=== PATIENT | female | born 1965 ===

== ENCOUNTER 2018-10-29 20:51 | Emergency (ER) | payer SELFPAY ==
[~2018-10-29] VITALS: Ht 170.2 cm; Wt 90.7 kg
[2018-10-29] MEDS ORDERED: Colace100 MG PO (22:47)
[2018-10-29] MEDS ORDERED: KETO10 PO (22:47)
== END 2018-10-29 23:13 | disposition home or self-care (01) ==
LOC: ER 20:51
DX: S30.0XXA Contusion of lower back and pelvis, initial encounter (principal); W18.30XA Fall on same level, unspecified, initial encounter
CPT/HCPCS: 72220; 96372; 99283-25; J1885

== ENCOUNTER 2020-11-15 23:13 | Inpatient (IN) | payer SELFPAY ==
[~2020-11-15] VITALS: Ht 170.2 cm; Wt 90.1 kg
[~2020-11-15 23:13] MED LIST: Colace100 MG PO; KETO10 PO
[2020-11-15 23:37] LABS: BASOPHILS ABSOLUTE AUTO 0.03 K/mm3 (0.00-0.23); BASOPHILS PERCENT AUTO 0 % (0-2); EOSINOPHILS PERCENT AUTO 0 % (0-6); Hematocrit 46.5 % (33.0-51.0); Mean Corpuscular HGB 31.7 pg (26.0-34.0); Mean Corpuscular HGB Conc 34.4 g/dL (31.5-36.5); Mean Corpuscular Volume 92 fL (80-100); Platelet Count 180 K/mm3 (150-400); RDW Coefficient Variation 12.6 % (11.7-14.2); Red Blood Cell Count 5.04 M/mm3 (3.80-5.20); White Blood Cell Count 7.31 K/mm3 (4.00-11.30)
[2020-11-15 23:38] LABS: IMMATURE GRAN ABSOLUTE AUTO 0.04 K/mm3 (0.00-0.10); IMMATURE GRAN PERCENT AUTO 1 % (0-1); LYMPHOCYTES ABSOLUTE AUTO 0.86 K/mm3 (0.84-5.20); LYMPHOCYTES PERCENT AUTO 12 % (21-46); MONOCYTES PERCENT AUTO 4 % (4-13); NEUTROPHILS ABSOLUTE AUTO 6.08 K/mm3 (1.96-9.15); NEUTROPHILS PERCENT AUTO 83 % (41-73)
[2020-11-15 23:59] LABS: Alanine Aminotransfer (ALT/SGP 54 U/L (12-78); Albumin, Blood 2.6 g/dL (3.4-5.0); Albumin/Globulin Ratio 0.6 (0.8-1.8); Alk Phos 62 U/L (50-136); Anion Gap 8 mmol/L (6-16); Aspartate Aminotrans (AST/SGOT 68 U/L (12-37); Bilirubin, Total 0.4 mg/dL (0.1-1.0); Blood Urea Nitrogen 11 mg/dL (8-24); Bun/Creatinine Ratio 14.8 (12.0-20.0); CO2, Blood 25 mmol/L (21-32); Calcium, Blood 7.4 mg/dL (8.5-10.1); Chloride, Blood 99 mmol/L (98-108); Creatinine, Blood 0.74 mg/dL (0.40-1.00); Ferritin, Serum 1721 ng/mL (8-252); Glomerular Filtration Rate >60 (60-); Glucose, Blood 167 mg/dL (70-99); Lactate Dehydrogenase (Ld),Bld 977 U/L (100-240); Potassium, Blood 3.7 mmol/L (3.5-5.5); Sodium, Blood 132 mmol/L (136-145); Total Protein, Blood 6.6 g/dL (6.4-8.2)
[2020-11-16 00:29] LABS: SARS-Cov-2 (COVID-19) PCR, MMC POSITIVE (NEGATIVE)
[2020-11-16 11:21] LABS: Hematocrit 48.5 % (33.0-51.0); Hemoglobin 16.2 g/dL (11.5-16.0); Mean Corpuscular HGB 31.3 pg (26.0-34.0); Mean Corpuscular HGB Conc 33.4 g/dL (31.5-36.5); Mean Corpuscular Volume 94 fL (80-100); Mean Platelet Volume 10.1 fL (9.1-12.4); Platelet Count 183 K/mm3 (150-400); RDW Coefficient Variation 12.5 % (11.7-14.2); RDW Standard Deviation 43.4 fL (35.1-46.3); Red Blood Cell Count 5.17 M/mm3 (3.80-5.20); White Blood Cell Count 6.51 K/mm3 (4.00-11.30)
[2020-11-16 11:39] LABS: BAND PERCENT MAN 2 % (0-8); BASOPHILS PERCENT MAN 0 % (0-2); EOSINOPHILS PERCENT MAN 0 % (0-6); LYMPHOCYTES ABSOLUTE MAN 0.71 K/mm3 (0.84-5.20); LYMPHOCYTES PERCENT MAN 11 % (21-46); MONOCYTES ABSOLUTE MAN 0.06 K/mm3 (0.16-1.47); MONOCYTES PERCENT MAN 1 % (4-13); NEUTROPHILS ABSOLUTE MAN 5.72 K/mm3 (1.96-9.15); SEG NEUTROPHILS PERCENT MAN 86 % (41-73); TOTAL CELLS COUNTED 100
[2020-11-16 11:41] LABS: Alanine Aminotransfer (ALT/SGP 51 U/L (12-78); Albumin, Blood 2.6 g/dL (3.4-5.0); Albumin/Globulin Ratio 0.6 (0.8-1.8); Alk Phos 64 U/L (50-136); Anion Gap 10 mmol/L (6-16); Aspartate Aminotrans (AST/SGOT 65 U/L (12-37); Bilirubin, Total 0.4 mg/dL (0.1-1.0); Blood Urea Nitrogen 13 mg/dL (8-24); Bun/Creatinine Ratio 21.2 (12.0-20.0); CO2, Blood 24 mmol/L (21-32); Calcium, Blood 8.2 mg/dL (8.5-10.1); Chloride, Blood 101 mmol/L (98-108); Creatinine, Blood 0.61 mg/dL (0.40-1.00); Globulin, Blood 4.4 g/dL (2.2-4.0); Glomerular Filtration Rate >60 (60-); Glucose, Blood 197 mg/dL (70-99); Sodium, Blood 135 mmol/L (136-145)
[2020-11-16] MEDS ORDERED: B12-FOLIC ACID1 EACH (16:49)
--- NOTE | 2020-11-16 18:37 | NUR ---
RECEIVED PT FROM ED ON 10L VIA OX. PT WAS DESATTING TO 82 AND WAS INCREASED TO 13L, SAT 88 AND ABOVE. PT REMAINS ALERT AND ORIENTED X4 MAKING NO C/O PAIN OR SOB. STAFF WILL CONTINUE TO MONITOR.
--- NOTE | 2020-11-17 03:43 | NUR ---
BUSINESS OFFICE TECHNICIAN SUMMARY HAS BEEN RESTING ON BED WITH INTERMITTENT EPISODES OF WAKEFULNESS. LUNG SOUNDS DIMINISHED AND IS ON O2 AT 13L/MIN ON NON REBREATHER/OXYMIZER DEPENDING ON WHAT FEELS MORE COMFORTABLE WITH HER SHE IS A MOUTH BREATHER WHEN SHE IS SLEEPING. MED TELE. UP TO BATHROOM WITH ASSIST NEEDED SHE IS SOB WITH EXERTION. CALL LIGHT IN REACH. ISOLATION PRECAUTIONS MAINTAINED
[2020-11-17 06:33] LABS: Alanine Aminotransfer (ALT/SGP 41 U/L (12-78); Albumin, Blood 2.4 g/dL (3.4-5.0); Albumin/Globulin Ratio 0.6 (0.8-1.8); Alk Phos 68 U/L (50-136); Anion Gap 8 mmol/L (6-16); Aspartate Aminotrans (AST/SGOT 46 U/L (12-37); Bilirubin, Total 0.3 mg/dL (0.1-1.0); Blood Urea Nitrogen 17 mg/dL (8-24); Bun/Creatinine Ratio 26.4 (12.0-20.0); CO2, Blood 25 mmol/L (21-32); Calcium, Blood 7.7 mg/dL (8.5-10.1); Chloride, Blood 100 mmol/L (98-108); Creatinine, Blood 0.64 mg/dL (0.40-1.00); Globulin, Blood 4.2 g/dL (2.2-4.0); Glomerular Filtration Rate >60 (60-); Glucose, Blood 264 mg/dL (70-99); Potassium, Blood 3.7 mmol/L (3.5-5.5); Sodium, Blood 133 mmol/L (136-145); Total Protein, Blood 6.6 g/dL (6.4-8.2)
--- NOTE | 2020-11-17 17:35 | NUR ---
SUMMARY- PT UP IN CHAIR MOST OF THE DAY. SWITCHES FROM OXYMIZER 13L TO NRM FEELS MORE COMFORTABLE, SATTING 93%, DESATS WITH ACTIVITY TO 85%. FEELS GENERALLY EXHAUSTED BUT ONLY MIN SOB WITH EXERTION. GEN BODY ACHES. OCC EXP WHEEZE. TOLERATING FOOD FLUIDS. ABLE TO AMBULATE TO THE BATHROOM SBA RICH ACT WITH MIN SOB.
--- NOTE | 2020-11-18 06:07 | NUR ---
SHIFT SUMMARY PATIENT ALERT AND ORIENTED. MEDICATED PER EMAR FOR HEADACHE. NO ACUTE ISSUES NOTED. CALL LIGHT WITHIN REACH. REPORT GIVEN TO ONCOMING RN.
--- NOTE | 2020-11-18 17:53 | NUR ---
PT HAS BEEN UP BACK AND FORTH BETWEEN BED AND CHAIR T/O THE SHIFT, UP TO BSC/BR NEEDED. C/O OF SOB WITH ACTIVITY. PT IS ON 15LNRB. SATS MAINTAINED IN 90'S WHILE AT REST, DESATS QUICKLY WITH ANY ACTIVITY. SHE HAS REPORTED SOB, BACK PAIN, COUGH AND BODY ACHES T/O THE SHIFT. NASAL CANNULA IS BEING ADDED FOR ADDITIONAL OXGYEN SUPPORT.
[2020-11-19 05:51] LABS: Base Excess Venous 3.3 mmol/L; PCO2 Venous 30.8 mmHg (38-42); PO2 Venous 113 mmHg (38-42); pH Blood Venous 7.53 (7.34-7.37)
[2020-11-19 06:12] LABS: BASOPHILS ABSOLUTE AUTO 0.03 K/mm3 (0.00-0.23); BASOPHILS PERCENT AUTO 0 % (0-2); EOSINOPHILS PERCENT AUTO 0 % (0-6); Hematocrit 47.1 % (33.0-51.0); Hemoglobin 15.9 g/dL (11.5-16.0); IMMATURE GRAN ABSOLUTE AUTO 0.07 K/mm3 (0.00-0.10); IMMATURE GRAN PERCENT AUTO 1 % (0-1); LYMPHOCYTES ABSOLUTE AUTO 0.55 K/mm3 (0.84-5.20); LYMPHOCYTES PERCENT AUTO 7 % (21-46); MONOCYTES ABSOLUTE AUTO 0.34 K/mm3 (0.16-1.47); MONOCYTES PERCENT AUTO 4 % (4-13); Mean Corpuscular HGB 31.1 pg (26.0-34.0); Mean Corpuscular HGB Conc 33.8 g/dL (31.5-36.5); Mean Corpuscular Volume 92 fL (80-100); NEUTROPHILS ABSOLUTE AUTO 7.26 K/mm3 (1.96-9.15); NEUTROPHILS PERCENT AUTO 88 % (41-73); Platelet Count 293 K/mm3 (150-400); RDW Coefficient Variation 12.4 % (11.7-14.2); RDW Standard Deviation 42.4 fL (35.1-46.3); Red Blood Cell Count 5.11 M/mm3 (3.80-5.20); White Blood Cell Count 8.25 K/mm3 (4.00-11.30)
--- NOTE | 2020-11-19 06:24 | NUR ---
PHYSICIAN COMMUNICATION CONTACTED PERSONNEL ASSOCIATE PHYSICIAN, DR WADE TO NOTIFY HIM THAT THE PATIENT HAD A CRITICAL HIGH pH FROM THEIR VBG AT 7.53. NO ORDERS GIVEN.
[2020-11-19 06:30] LABS: Alanine Aminotransfer (ALT/SGP 36 U/L (12-78); Albumin, Blood 2.3 g/dL (3.4-5.0); Albumin/Globulin Ratio 0.6 (0.8-1.8); Alk Phos 81 U/L (50-136); Anion Gap 8 mmol/L (6-16); Aspartate Aminotrans (AST/SGOT 41 U/L (12-37); Bilirubin, Total 0.4 mg/dL (0.1-1.0); Blood Urea Nitrogen 19 mg/dL (8-24); Bun/Creatinine Ratio 30.2 (12.0-20.0); CO2, Blood 26 mmol/L (21-32); Calcium, Blood 7.8 mg/dL (8.5-10.1); Chloride, Blood 103 mmol/L (98-108); Creatinine, Blood 0.63 mg/dL (0.40-1.00); Globulin, Blood 4.1 g/dL (2.2-4.0); Glomerular Filtration Rate >60 (60-); Glucose, Blood 227 mg/dL (70-99); Potassium, Blood 3.9 mmol/L (3.5-5.5); Sodium, Blood 137 mmol/L (136-145); Total Protein, Blood 6.4 g/dL (6.4-8.2)
--- NOTE | 2020-11-19 06:48 | NUR ---
SHIFT SUMMARY PATIENT ALERT AND ORIENTED. PT WAS ANXIOUS OVERNIGHT. O2 INCREASED TO 15 LITERS VIA NRB PLUS 12 LITERS VIA HIGH FLOW NASAL CANULA. CALL LIGHT WITHIN REACH. REPORT GIVEN TO ONCOMING RN.
--- NOTE | 2020-11-19 16:24 | NUR ---
SHIFT SUMMARY PATIENT DENIES PAIN AND NAUSEA. PATIENT GETS VERY SHORT OF BREATH WITH ACTIVITY. PATIENT IS ON 15L NRB AND 12L HIGH FLOW N/C. PATIENT WALKED TO BATHROOM THIS AM AND DESATURATED TO 70%. DR. MARROQUIN NOTIFIED. BEDSIDE COMMODE USED FOR REST OF SHIFT WITH SBA. WHEN PATIENT IS IN BED ON HER SIDE, SATS STAY ABOVE 93%. PATIENT IS VERY ANXIOUS ABOUT HER HEALTH AND OXYGEN LEVELS. PATIENT STATES SHE FEELS VERY WEAK AND TIRED. PATIENT SLEPT MOST OF SHIFT AND REFUSED ALL MEALS. PATIENT DID DRINK TWO ENSURES TODAY.
--- NOTE | 2020-11-20 05:15 | NUR ---
EQUIPMENT TECH SUMMARY PT A/O X4, SLEPT WELL TONIGHT. AMBULATED WITH SBA TO BSC. CONTINUES TO BE ON 15L NRB W 13L HIGH FLOW SATTING IN THE LOW 90'S. PT DESATS DOWN TO THE HIGH 70'S EASILY WITH ACITIVY. NO ACUTE CHANGES, DENIES PAIN AND NAUSEA. CALL LIGHT WITHIN REACH, WILL CONTINUE TO MONITOR.
--- NOTE | 2020-11-20 11:31 | NUR ---
DISCHARGE PATIENT TRANSPORTED VIA WHEELCHAIR TO [facility], THEN BEING TRANSPORTED HOME. PATIENT IS BEING DISCHARGED HOME WITH HOSPICE. HARD COPIES OF MEDICATIONS SENT WITH PATIENT. DISCHARGE PACKET SENT WITH PATIENT. PATIENT BELONGINGS SENT WITH PATIENT. POLST GIVEN TO SUPERVISOR LEAF SPRING REPAIR. HOSPICE NURSE TO MEET PATIENT AT HIS HOME. IV REMOVED WITHOUT DIFFICULTY.
--- NOTE | 2020-11-20 17:30 | NUR ---
SHIFT SUMMARY PATIENT MEDICATED X1 FOR PAIN. DENIES NAUSEA AND SHORTNESS OF BREATH AT REST. PATIENT EXPERIENCING SOME SOB WITH ACTIVITY. PATIENT ABLE TO TOLERATE MORE ACTIVITY TODAY. PATIENT DID NOT DESAT FREQUENTLY AND RECOVERED QUICKLY WHEN DESAT. PATIENT ON 14L WITH A NRB AND 6L N/C. MAINTAINING SATS ABOVE 90%. PATIENT HAD MORE OF AN APPETITE TODAY. PATIENT IS STILL VERY ANXIOUS ABOUT HEALTH AND OXYGEN NEEDS. PATIENT IS A SBA TO THE COMMODE. PATIENT COULD NOT TOLERATE PRONE POSITION.
--- NOTE | 2020-11-21 05:12 | NUR ---
INSULATION TECHNICIAN SUMMARY PT A/O X4, AMBULATES WITH SBA TO BSC. CONTINUES TO BE ON 14 NRB WITH 6L VIA HIGH FLOW SATTING IN THE LOW TO MID 90'S. VSS. DENIED PAIN. MEDICATED FOR ANXIETY AT BEGINNING OF SHIFT. NO ACUTE CHANGES, CALL LIGHT WITHIN REACH, WILL CONTINUE TO MONITOR.
--- NOTE | 2020-11-21 18:34 | NUR ---
SHIFT SUMMARY NO ACUTE CHANGES. PT REMAINS ON AIRVO 45 L/MIN @ 90% FiO2 AND 15 L/MIN NRB. SATING IN THE 90'S. PT BECOMES ANXIOUS AND IRRITABLE @ TIMES. STATES "I CANNOT DO THIS FOR 4 MORE DAYS". PT DENIES ANY OTHER DISTRESS. FREQUENT SMALL VOIDS. PT STATES THIS IS NORMAL FOR HER. ORAL INTAKE SLIGHTLY BETTER, DRINKING HER NUTRITION SUPPLEMENTAL DRINKS. PT CALLS APPROPRIATELY.
--- NOTE | 2020-11-21 19:30 | NUR ---
ASSUMED CARE RECEIVED REPORT FROM LILLIE WEAVER. PT RESTING, IN NAD. NO ACUTE NEEDS ASSESSED AT THIS TIME. CALL LIGHT, POSSESSIONS IN REACH. BED IN LOW AND LOCKED POSITION. WCTM.
--- NOTE | 2020-11-22 04:23 | NUR ---
SHIFT SUMMARY PT RESTING, IN NAD. NO ACUTE CONCERNS TO REPORT OVERNIGHT. VS REVIEWED,WNL; O2 SATS STABLE ON AIRVO/NRB. COOPERATIVE WITH CARES. CALLS APPROPRIATELY TO MAKE NEEDS KNOWN. NO ACUTE NEEDS ASSESSED AT THIS TIME. CALL LIGHT, POSSESSIONS IN REACH, BED IN LOW AND LOCKED POSITION. WILL REPORT OFF TO ONCOMING RN.
--- NOTE | 2020-11-22 16:33 | NUR ---
PT CBG OF 409, T/C TO DR YORK, ORDERS TO CHANGE LOW SLIDING SCALE TO HIGH SLIDING SCALE STARTING NOW.
--- NOTE | 2020-11-22 19:50 | NUR ---
ASSUMED CARE RECEIVED REPORT FROM LILLIE FERRER. PT RESTING, IN NAD. CBG 318. NO ACUTE DISTRESS NOTED. CALL LIGHT, POSSESSIONS IN REACH, BED IN LOW AND LOCKED POSITION
--- NOTE | 2020-11-23 06:46 | NUR ---
SHIFT SUMMARY VSS. NO ACUTE CHANGES. PT WEARING OXIMIZER NASAL CANULA AT 12LPM, AND NON-REBREATHER AT 15 LPM. PT SLEPT WELL UNTIL 0630, WHEN SHE REQUESTED A BREATHING TREATMENT AND STATED SHE FELT LIKE SHE COULDN'T CATCH HER BREATHE. OXYGEN SATS AT 94-95%. NO ACUTE DISTRESS. RN OFFERED PRN ATIVAN, PT DECLINED. NOTIFIED RT OF REQUEST FOR BREATHING TREATMENT. WILL CONTINUE TO MONITOR. CALL LIGHT WITHIN REACH, BED WITHIN LOWEST POSITION.
--- NOTE | 2020-11-23 07:19 | NUR ---
REPORT GIVEN TO LILLIE FERRER.
--- NOTE | 2020-11-23 08:55 | NUR ---
PT WITH TEMP OF 100.2 AND ELEVATED HR INTO THE 120'S. MEDICATED WITH PO TYLENOL FOR TEMP. DR MARROQUIN AWARE. WILL MONITOR
--- NOTE | 2020-11-23 10:20 | NUR ---
TEMP DECREASED TOO 98.8 AND HEART RATE IS DOWN TO 90
--- NOTE | 2020-11-23 19:05 | NUR ---
ASSUMED CARE RECEIVED REPORT FROM LILLIE FERRER. PT RESTING, IN NAD. NO ACUTE NEEDS ASSESSED AT THIS TIME. EUGENIO.
--- NOTE | 2020-11-23 19:11 | NUR ---
PT IS STARTING TO FEEL BETTER, STILL REQUIRES AIRVO AND NON-REBREATHER. NO ACUTE CHANGES NOTED THIS SHIFT, WILL CONTINUE TO MONITOR AND REPORT TO ONCOMING RN
[2020-11-24 05:20] LABS: BASOPHILS ABSOLUTE AUTO 0.03 K/mm3 (0.00-0.23); BASOPHILS PERCENT AUTO 0 % (0-2); EOSINOPHILS ABSOLUTE AUTO 0.29 K/mm3 (0.00-0.68); EOSINOPHILS PERCENT AUTO 3 % (0-6); Hemoglobin 15.3 g/dL (11.5-16.0); IMMATURE GRAN ABSOLUTE AUTO 0.14 K/mm3 (0.00-0.10); IMMATURE GRAN PERCENT AUTO 1 % (0-1); LYMPHOCYTES ABSOLUTE AUTO 0.88 K/mm3 (0.84-5.20); LYMPHOCYTES PERCENT AUTO 9 % (21-46); MONOCYTES ABSOLUTE AUTO 0.26 K/mm3 (0.16-1.47); MONOCYTES PERCENT AUTO 3 % (4-13); Mean Corpuscular HGB 31.2 pg (26.0-34.0); Mean Corpuscular HGB Conc 33.3 g/dL (31.5-36.5); Mean Corpuscular Volume 94 fL (80-100); Mean Platelet Volume 9.5 fL (9.1-12.4); NEUTROPHILS ABSOLUTE AUTO 8.79 K/mm3 (1.96-9.15); NEUTROPHILS PERCENT AUTO 85 % (41-73); Platelet Count 234 K/mm3 (150-400); RDW Coefficient Variation 12.5 % (11.7-14.2); RDW Standard Deviation 43.2 fL (35.1-46.3); Red Blood Cell Count 4.91 M/mm3 (3.80-5.20); White Blood Cell Count 10.39 K/mm3 (4.00-11.30)
[2020-11-24 05:49] LABS: Alanine Aminotransfer (ALT/SGP 42 U/L (12-78); Albumin/Globulin Ratio 0.5 (0.8-1.8); Alk Phos 75 U/L (50-136); Anion Gap 4 mmol/L (6-16); Aspartate Aminotrans (AST/SGOT 29 U/L (12-37); Bilirubin, Total 0.5 mg/dL (0.1-1.0); Blood Urea Nitrogen 13 mg/dL (8-24); Bun/Creatinine Ratio 21.7 (12.0-20.0); CO2, Blood 27 mmol/L (21-32); Calcium, Blood 7.9 mg/dL (8.5-10.1); Chloride, Blood 106 mmol/L (98-108); Glomerular Filtration Rate >60 (60-); Glucose, Blood 102 mg/dL (70-99); Potassium, Blood 4.4 mmol/L (3.5-5.5); Sodium, Blood 137 mmol/L (136-145)
--- NOTE | 2020-11-24 06:32 | NUR ---
SHIFT SUMMARY PT RESTING, IN NAD. NO ACUTE CONCERNS TO REPORT OVERNIGHT, VS REVIEWED,WNL; O2 SATS STABLE ON 15L/NRB PLUS AIRVO, RANGING 95-98%. APPEARED TO SLEEP WELL. NO ACUTE NEEDS ASSESSED AT THIS TIME. CALL LIGHT, POSSESSIONS IN REACH, BED IN LOW AND LOCKED POSITION. INDEPENDENT TO BSC, TOLERATES WELL. WILL REPORT OFF TO ONCOMING RN.
--- NOTE | 2020-11-24 11:30 | NUR ---
PT PLEASANT COOP A/O TALKING. LUNGS CLEAR IN LOW LEFT, BALANCE IS CRACKLES. ON AIRVO 45L / 85% FIO2. PT HOPEFUL FOR RECOVERY. BED IN LOW POSITION, CALL LITE IN REACH, CALLS APPROP
--- NOTE | 2020-11-24 18:20 | NUR ---
PT DOING PRETTY WELL. COUNTANANCE IMPROVED SOME. IS ON AIRVO 40L 85% FIO2. USES NON-REBREATHER NEEDED. O2 SATS THIS AFT MAINTAINING ABOUT 95%. IS PREESENTLY PRETTY UPSET, HUSB JUST CAME TO ER FOR STROKE LIKE SYMPTOMS. NO OTHER CONCERNS NOTED. BED IN LOW POSITION, CALL LITE IN REACH, CALLS APROP
--- NOTE | 2020-11-25 04:43 | NUR ---
SHIFT SUMMARY PT WAS ADMITTED FOR HYPOXIA & PNE D/T COVID19+ PT IS A FULL CODE. THE PLAN FOR THIS PT IS TO DECREASE 02 NEEDS. NO SIGINIFICANT CHANGES DURING THIS SHIFT. PT RESTING IN BED. VS STABLE AT THIS TIME.
--- NOTE | 2020-11-25 12:58 | NUR ---
PT HAS BEEN PLEASANT TODAY. NO C/O PAIN. H/R REG, NO MURMER NOTED. NO TELE. LUNGS CRACKLES T/O. CONTROL ROOM HELPER IN BASES THAN UPPER. PRESENTLY ON AIRBE 45L AND 70 FIO2. SATS 95-98% AT THIS TIME. RESP EASY, UNLABORED. ALSO HAS NON-REBREATHER AT SIDE. USES PRN, KOLBY IF NEEDS TO USE BSC. STATES FEELS IF SOME IMPROVEMENT. CONCERNED ABOUT WITH CHEST PAIN. WAS ADMITTED TO HOSP LAST NITE. NO NEW CONCERNS NOTED. BED IN LOW POSITION, CALL LITE IN REACH, CALLS APPROP
--- NOTE | 2020-11-26 05:25 | NUR ---
SHIFT SUMMARY PT IS A FULL CODE ADMITTED FOR HYPOXIOA PNEU D/T COVID 19+. THE PLAN FOR THIS PT IS TO DECREASE 02 DEMANDS ADQUEATE ENOUGH FOR D/C. NO DISTRESS DURING THIS SHIFT. NO SIGNIFICANT CHANGES DURING THIS SHIFT.
[2020-11-26 05:51] LABS: BASOPHILS ABSOLUTE AUTO 0.02 K/mm3 (0.00-0.23); BASOPHILS PERCENT AUTO 0 % (0-2); EOSINOPHILS ABSOLUTE AUTO 0.11 K/mm3 (0.00-0.68); EOSINOPHILS PERCENT AUTO 1 % (0-6); Hematocrit 44.7 % (33.0-51.0); Hemoglobin 14.9 g/dL (11.5-16.0); IMMATURE GRAN ABSOLUTE AUTO 0.11 K/mm3 (0.00-0.10); IMMATURE GRAN PERCENT AUTO 1 % (0-1); LYMPHOCYTES ABSOLUTE AUTO 0.88 K/mm3 (0.84-5.20); LYMPHOCYTES PERCENT AUTO 11 % (21-46); MONOCYTES ABSOLUTE AUTO 0.29 K/mm3 (0.16-1.47); MONOCYTES PERCENT AUTO 4 % (4-13); Mean Corpuscular HGB Conc 33.3 g/dL (31.5-36.5); Mean Corpuscular Volume 93 fL (80-100); Mean Platelet Volume 9.8 fL (9.1-12.4); NEUTROPHILS ABSOLUTE AUTO 6.87 K/mm3 (1.96-9.15); NEUTROPHILS PERCENT AUTO 83 % (41-73); Platelet Count 268 K/mm3 (150-400); RDW Coefficient Variation 12.4 % (11.7-14.2); RDW Standard Deviation 42.8 fL (35.1-46.3); White Blood Cell Count 8.28 K/mm3 (4.00-11.30)
[2020-11-26 06:20] LABS: Alanine Aminotransfer (ALT/SGP 55 U/L (12-78); Albumin, Blood 2.2 g/dL (3.4-5.0); Albumin/Globulin Ratio 0.5 (0.8-1.8); Alk Phos 70 U/L (50-136); Anion Gap 2 mmol/L (6-16); Aspartate Aminotrans (AST/SGOT 26 U/L (12-37); Bilirubin, Total 0.4 mg/dL (0.1-1.0); Blood Urea Nitrogen 15 mg/dL (8-24); Bun/Creatinine Ratio 25.1 (12.0-20.0); CO2, Blood 31 mmol/L (21-32); Calcium, Blood 8.6 mg/dL (8.5-10.1); Chloride, Blood 104 mmol/L (98-108); Globulin, Blood 4.1 g/dL (2.2-4.0); Glomerular Filtration Rate >60 (60-); Glucose, Blood 141 mg/dL (70-99); Potassium, Blood 4.5 mmol/L (3.5-5.5); Sodium, Blood 137 mmol/L (136-145); Total Protein, Blood 6.3 g/dL (6.4-8.2)
--- NOTE | 2020-11-26 18:21 | NUR ---
makes needs known, nonrebreather at 13 l, aerovo at 50L 85%, sats stayed 90-98% today, encouraged coughing and deep breath, LS dimished right lung upper and lower worse than left, active bt, ate all three meals, csm+, no changes through out the day, wctm
--- NOTE | 2020-11-27 04:33 | NUR ---
SHIFT SUMMARY PT ADMITTED FOR COVID 19+. THE PLAN FOR THIS PT IS TO DECREASE 02 DEMANDS. PT IS ON AIRVO 45L. SATS HAS BEEN 92%-96% THROUGHOUT THIS SHIFT. NO DISTRESS NOTED. NO OTHER SIGNIFICANT CHANGES DURING THIS SHIFT. ALL VS STABLE.
[2020-11-27 05:29] LABS: BASOPHILS ABSOLUTE AUTO 0.02 K/mm3 (0.00-0.23); BASOPHILS PERCENT AUTO 0 % (0-2); EOSINOPHILS ABSOLUTE AUTO 0.12 K/mm3 (0.00-0.68); EOSINOPHILS PERCENT AUTO 1 % (0-6); Hematocrit 45.5 % (33.0-51.0); Hemoglobin 15.4 g/dL (11.5-16.0); IMMATURE GRAN ABSOLUTE AUTO 0.09 K/mm3 (0.00-0.10); IMMATURE GRAN PERCENT AUTO 1 % (0-1); LYMPHOCYTES ABSOLUTE AUTO 1.27 K/mm3 (0.84-5.20); LYMPHOCYTES PERCENT AUTO 14 % (21-46); MONOCYTES ABSOLUTE AUTO 0.45 K/mm3 (0.16-1.47); MONOCYTES PERCENT AUTO 5 % (4-13); Mean Corpuscular HGB 31.6 pg (26.0-34.0); Mean Corpuscular HGB Conc 33.8 g/dL (31.5-36.5); Mean Corpuscular Volume 93 fL (80-100); Mean Platelet Volume 9.6 fL (9.1-12.4); NEUTROPHILS ABSOLUTE AUTO 7.43 K/mm3 (1.96-9.15); NEUTROPHILS PERCENT AUTO 79 % (41-73); Platelet Count 290 K/mm3 (150-400); RDW Coefficient Variation 12.2 % (11.7-14.2); Red Blood Cell Count 4.88 M/mm3 (3.80-5.20); White Blood Cell Count 9.38 K/mm3 (4.00-11.30)
[2020-11-27 05:57] LABS: Alanine Aminotransfer (ALT/SGP 84 U/L (12-78); Albumin, Blood 2.4 g/dL (3.4-5.0); Albumin/Globulin Ratio 0.6 (0.8-1.8); Alk Phos 70 U/L (50-136); Anion Gap 3 mmol/L (6-16); Aspartate Aminotrans (AST/SGOT 37 U/L (12-37); Bilirubin, Total 0.4 mg/dL (0.1-1.0); Blood Urea Nitrogen 14 mg/dL (8-24); Bun/Creatinine Ratio 21.6 (12.0-20.0); CO2, Blood 31 mmol/L (21-32); Calcium, Blood 8.6 mg/dL (8.5-10.1); Chloride, Blood 104 mmol/L (98-108); Creatinine, Blood 0.65 mg/dL (0.40-1.00); Globulin, Blood 4.3 g/dL (2.2-4.0); Glomerular Filtration Rate >60 (60-); Glucose, Blood 123 mg/dL (70-99); Potassium, Blood 4.4 mmol/L (3.5-5.5); Sodium, Blood 138 mmol/L (136-145); Total Protein, Blood 6.7 g/dL (6.4-8.2)
--- NOTE | 2020-11-27 19:23 | NUR ---
MAKES NEEDS KNOWN, NOT USING NON REBREATHER AT ALL, CALL LIGHT WITH IN REACH, STARTED IS USE TODAY, POSSIBLE DISCHARGE IN TWO DAYS, GOOD APPETITE, DENIES PAIN, WCTM
--- NOTE | 2020-11-28 04:10 | NUR ---
SHIFT SUMMARY FULL CODE PT ADMITTED FOR COVID 19+. PT ON AIRVO SATTING 90-95 THROUGHOUT SHIFT. NO DISTRESS NOTED. VS STABLE THROUGHOUT SHIFT. PT VOICES NO CONCERNS. AAOX3. NO SIGNIFICANT CHANGES DURING THIS SHIFT.
[2020-11-28 05:25] LABS: BASOPHILS ABSOLUTE AUTO 0.02 K/mm3 (0.00-0.23); BASOPHILS PERCENT AUTO 0 % (0-2); EOSINOPHILS ABSOLUTE AUTO 0.08 K/mm3 (0.00-0.68); EOSINOPHILS PERCENT AUTO 1 % (0-6); Hematocrit 43.4 % (33.0-51.0); Hemoglobin 14.6 g/dL (11.5-16.0); IMMATURE GRAN ABSOLUTE AUTO 0.08 K/mm3 (0.00-0.10); IMMATURE GRAN PERCENT AUTO 1 % (0-1); LYMPHOCYTES ABSOLUTE AUTO 1.36 K/mm3 (0.84-5.20); LYMPHOCYTES PERCENT AUTO 16 % (21-46); MONOCYTES ABSOLUTE AUTO 0.63 K/mm3 (0.16-1.47); MONOCYTES PERCENT AUTO 8 % (4-13); Mean Corpuscular HGB 31.1 pg (26.0-34.0); Mean Corpuscular HGB Conc 33.6 g/dL (31.5-36.5); Mean Corpuscular Volume 93 fL (80-100); Mean Platelet Volume 9.5 fL (9.1-12.4); NEUTROPHILS PERCENT AUTO 74 % (41-73); Platelet Count 276 K/mm3 (150-400); RDW Coefficient Variation 12.2 % (11.7-14.2); RDW Standard Deviation 41.5 fL (35.1-46.3); Red Blood Cell Count 4.69 M/mm3 (3.80-5.20); White Blood Cell Count 8.37 K/mm3 (4.00-11.30)
[2020-11-28 06:00] LABS: Alanine Aminotransfer (ALT/SGP 101 U/L (12-78); Albumin, Blood 2.3 g/dL (3.4-5.0); Albumin/Globulin Ratio 0.6 (0.8-1.8); Alk Phos 58 U/L (50-136); Anion Gap 3 mmol/L (6-16); Aspartate Aminotrans (AST/SGOT 34 U/L (12-37); Bilirubin, Total 0.7 mg/dL (0.1-1.0); Blood Urea Nitrogen 15 mg/dL (8-24); Bun/Creatinine Ratio 23.1 (12.0-20.0); CO2, Blood 31 mmol/L (21-32); Chloride, Blood 103 mmol/L (98-108); Creatinine, Blood 0.65 mg/dL (0.40-1.00); Globulin, Blood 3.8 g/dL (2.2-4.0); Glomerular Filtration Rate >60 (60-); Glucose, Blood 119 mg/dL (70-99); Potassium, Blood 4.2 mmol/L (3.5-5.5); Sodium, Blood 137 mmol/L (136-145); Total Protein, Blood 6.1 g/dL (6.4-8.2)
--- NOTE | 2020-11-28 14:53 | NUR ---
Introduction: RN called Crew Truck Driver to provide support to pt. Assessment: 55 y/o female pt presented sitting up visually upset and talking in anxious voice. Physical Therapist was present in room and sitting with pt in a difficult time. Pt recieved call that her was in the middle of a health crisis and may not make it. Pt was upset and frantically making calls and trying to hear from her . While present in room pt recieved a call that was ok and he would be fine. Pt calmed down and continued to talk about life and places she has visited. Pt also spoke about being in the hospital for 13 days and expressed, "I want to get out of here and will leave soon. I want to take care of my and my can take care of me." Intervention: Attemtped to cultivate a relationship of care and suport. Actively listened. Offered prayer, pt not interested. Outcome: Pt was able to express her fears, anxiety, and concern for her and struggles still being in hospital. Pt calmed toward end of visit and expressed gratitude for support. Follow up: RN asked that pt be put on a regular visit list for the rough planer tender department.
--- NOTE | 2020-11-28 19:28 | NUR ---
MAKES NEEDS KNWON, EMOTIONAL DAY WTH FAMILY HEALTH ISSUES, ABD PAIN RELEIVED BY BM, MEDICATED WITH MIRALAX AND DULCOLAX, DENIES PAIN, NAUSEA, OR CP, WCTM
--- NOTE | 2020-11-29 04:26 | NUR ---
SHIFT SUMMARY- PT. A&O, PLEASANT AND COOPERATIVE WITH CARE. ON AIRVO 40L @35%, SATS MAINTAINED @93%. PT. MEDICATED WITH ATIVAN PER REQUEST. ASLEEP T/O THE NIGHT, NO APPARENT DISTRESS NOTED. NO COMPLAINTS OF PAIN OR DISCOMFORT. CALL LIGHT WITHIN REACH AND SIDE RAILS UPX2. WILL CONT TO MONITOR.
--- NOTE | 2020-11-29 18:20 | NUR ---
SHIFT SUMMARY PATIENT IS ALERT AND ORIENTATED X4. PATIENT IS APPROPRIATE AND COOPERATIVE WITH CARE. PATIENT HAS BEEN SATTING IN THE MID TO LOW 90S ON AIRVO 40 LITERS AND 35 PERCENT. NO COMPLAINTS OF PAIN, NAUSEA OR VOMITTING. PATIENT HAS COMPLAINED OF ABDOMINAL DISCOMFORT WITH NO BOWEL MOVEMENT FOR [address] ABOUT STARTING MORE AGRESSIVE BOWEL CARE. ENEMA PERFORMED WITH NO POSITIVE RESULTS THUS FAR. VITAL SIGNS REVIEWED. WILL CONTINUE TO MONITOR UNTIL END OF SHIFT.
--- NOTE | 2020-11-30 06:16 | NUR ---
END OF SHIFT SUMMARY: PT AGITATED AND FRUSTRATED EDVIN SHE IS CONSTIPATED AND HAS NOT HAD BM IN 5 DAYS. HOSPITALIST CONTACTED. SUPPOSITORY IS GIVEN IN ADDITION TO OTHER LAXATIVES. PT STILL COMPACTED. THIS NURSE ATTEMPTS TO MANUALLY DISIMPACT PT PER PT REQUEST. PT COMPLAINING OF TOO MUCH PAIN. THIS NURSE STOPS AND ENCOURAGES PT TO GIVE MEDS MORE TIME TO WORK. PT HAS HAD A BM. AFTER BM PT RESTING. PT A&OX4. SATS AT 95-98%
--- NOTE | 2020-11-30 18:38 | NUR ---
SHIFT SUMMARY PATIENT ALERT AND ORIENTATED X4. PATIENT HAS BEEN PLEASENT AND COOPERATIVE WITH CARE THIS SHIFT. PATIENT HAS HAD BOWEL MOVEMENT THIS AM AND HAS HAD DECREASED COMPLAINTS OF CONSTIPATION THIS SHIFT. PATIENT SATTING IN LOW 90-95 ON 50L 60 PERCENT. BOWEL CARE IS CONTINUING. NO ACUTE EVENTS THIS SHIFT. BED IS IN LOCKED AND LOWEST POSITION. CALL LIGHT IN REACH. WILL CONTINUE TO MONITOR UNTIL END OF SHIFT.
--- NOTE | 2020-12-01 06:07 | NUR ---
SHIFT SUMMARY- PT. HAD A RESTFUL NIGHT, HAD NO COMPLAINTS OF PAIN OR DISCOMFORT T/O THE NIGHT. ON AIRVO 50L @63% SATS MAINTAINED AT 95-98%. CALL LIGHT WITHIN REACH AND SIDE RAILS UPX2. WILL CONT TO MONITOR.
--- NOTE | 2020-12-01 18:09 | NUR ---
SHIFT SUMMARY PATIENT HAS BEEN PLEASANT AND COOPERATIVE THIS SHIFT. HAS HAD NO ACUTE EVENTS THIS SHIFT. PATIENT ALERT AND ORIENTED X4. PATIENT HAS BEEN SATTING IN THE LOW 90S. PATIENT HAS BEEN TITRATED DOWN IN O2 AND HAS DONE WELL AT NEW SETTING. PATIENT IS APPROPRIATE AND CALLS APPROPRIATELY AND MAKES NEEDS KNOWN.
--- NOTE | 2020-12-02 04:40 | NUR ---
SHIFT SUMMARY PT ADMITTED FOR COVID 19+. PT HAS BEEN WEAN FRON AIR TO NC @9L. SATS 95. NO DISTRESS NOTED. PT APPEARS TO BE IN A BETTER MODE. ABLE TO MAKE NEEDS KNOWN.AAOX3. VOICES NO CONCERNS DURING THIS SHIFT.
[2020-12-02 05:41] LABS: BASOPHILS ABSOLUTE AUTO 0.02 K/mm3 (0.00-0.23); BASOPHILS PERCENT AUTO 0 % (0-2); EOSINOPHILS ABSOLUTE AUTO 0.12 K/mm3 (0.00-0.68); EOSINOPHILS PERCENT AUTO 1 % (0-6); Hematocrit 43.1 % (33.0-51.0); Hemoglobin 13.9 g/dL (11.5-16.0); IMMATURE GRAN ABSOLUTE AUTO 0.06 K/mm3 (0.00-0.10); IMMATURE GRAN PERCENT AUTO 1 % (0-1); LYMPHOCYTES ABSOLUTE AUTO 1.62 K/mm3 (0.84-5.20); LYMPHOCYTES PERCENT AUTO 16 % (21-46); MONOCYTES PERCENT AUTO 8 % (4-13); Mean Corpuscular HGB 30.8 pg (26.0-34.0); Mean Corpuscular HGB Conc 32.3 g/dL (31.5-36.5); Mean Corpuscular Volume 95 fL (80-100); Mean Platelet Volume 9.1 fL (9.1-12.4); NEUTROPHILS PERCENT AUTO 74 % (41-73); Platelet Count 280 K/mm3 (150-400); RDW Coefficient Variation 12.2 % (11.7-14.2); RDW Standard Deviation 42.8 fL (35.1-46.3); Red Blood Cell Count 4.52 M/mm3 (3.80-5.20); White Blood Cell Count 9.92 K/mm3 (4.00-11.30)
[2020-12-02 06:08] LABS: Alanine Aminotransfer (ALT/SGP 276 U/L (12-78); Albumin, Blood 2.7 g/dL (3.4-5.0); Albumin/Globulin Ratio 0.8 (0.8-1.8); Alk Phos 57 U/L (50-136); Anion Gap 2 mmol/L (6-16); Aspartate Aminotrans (AST/SGOT 56 U/L (12-37); Bilirubin, Total 0.6 mg/dL (0.1-1.0); Blood Urea Nitrogen 12 mg/dL (8-24); Bun/Creatinine Ratio 19.8 (12.0-20.0); CO2, Blood 34 mmol/L (21-32); Calcium, Blood 8.2 mg/dL (8.5-10.1); Chloride, Blood 102 mmol/L (98-108); Creatinine, Blood 0.61 mg/dL (0.40-1.00); Globulin, Blood 3.6 g/dL (2.2-4.0); Glomerular Filtration Rate >60 (60-); Glucose, Blood 108 mg/dL (70-99); Sodium, Blood 138 mmol/L (136-145); Total Protein, Blood 6.3 g/dL (6.4-8.2)
--- NOTE | 2020-12-02 13:43 | NUR ---
Pt. did Home O2 Exam. At rest on R/A pt. SpO2 was 88% Ambulatory on R/A pt. SpO2 was 74%-79% At rest on 6L pt. SpO2 was 92% Ambulatory on R/A pt. SpO2 was 88%-91% I placed pt. back on 7L Highflow N/C showing no signs of distress. I will continue monitor.
[2020-12-02] MEDS ORDERED: DEXA6 PO (16:15)
[2020-12-02] MEDS ORDERED: INSULANPEN SC (16:15)
--- NOTE | 2020-12-02 17:41 | NUR ---
DISCCHARGE NOTE THE PATIENT IS ALERT AND ORIENTED. THE PATIENT WAS DISCHARGED HOME WITH SPOUSE AT 1700. THE PATIENT WAS PROVIDED EDUCATION REGARDING THE USE SEMGLEE INSULIN PEN RECCOMENDED BY THE PHYSICIAN. PATIENT VERBALIZED UNDERSTANDING OF INSTRUCTIONS. THE PATIENT ALSO RECEIVED INFORMATION ABOUT FINANCIAL ASSISTANCE REGARDING MEDICATIONS. THE PATIENT PLANS TO FOLLOW UP WITH THE PCP WITHIN ONE WEEK.
== END 2020-12-02 17:18 | disposition home or self-care (01) | DRG 177 ==
LOC: ER 23:13 → ERHOLD 11-16 01:18 → MEDS 11-16 16:39
PROVIDERS: Emergency Medicine; Family Medicine; Internal Medicine; ADMIT Internal Medicine
PROC: 8E0ZXY6 Isolation (ICD-10-PCS; principal; 2020-11-16)
PROC: XW033E5 Introduction of Remdesivir Anti-infective into Peripheral Vein, Percutaneous Approach, New Technology Group 5 (ICD-10-PCS; 2020-11-16)
PROC: 3E0DX3Z Introduction of Anti-inflammatory into Mouth and Pharynx, External Approach (ICD-10-PCS; 2020-11-16)
DX: U07.1 COVID-19 (principal); J12.82 Pneumonia due to coronavirus disease 2019; J96.01 Acute respiratory failure with hypoxia; J44.0 Chronic obstructive pulmonary disease with (acute) lower respiratory infection; E11.65 Type 2 diabetes mellitus with hyperglycemia; K21.9 Gastro-esophageal reflux disease without esophagitis; K59.00 Constipation, unspecified; E66.9 Obesity, unspecified; Z68.32 Body mass index [BMI] 32.0-32.9, adult; F17.210 Nicotine dependence, cigarettes, uncomplicated
CPT/HCPCS: 36415; 71045; 80053; 82728; 82803; 82947; 83036; 83615; 83880; 84145; 85025; 93005; 93010; 94640; 94762; 96372-59; 96374; 96375; 99285-25; A9270; C9113; J1650; J1815; J2930; U0004